=== PATIENT | male | born 1990 | race Caucasian/White ===

== ENCOUNTER 2020-06-26 23:32 | Emergency (ER) | payer SELFPAY ==
[~2020-06-26] VITALS: Ht 170.2 cm; Wt 71.4 kg
--- NOTE | 2020-06-26 23:45 | NUR ---
INITIAL PT CONTACT. PT PRESENTS TO THE ED WITH LEFT SHOULDER, SCAPULA, CHEST WALL AND HIP PAIN FOLLOWING A SKATEBOARDING FALL. PT STATES HE WAS JUMPING HIS SKATEBOARD APPROX 1.5 FLIGHTS OF STAIRS, PT LANDED WITH HIS ARM BEHIND HIM WITH DIRECT FORCE ON THE LEFT SIDE. PT STATES HE HAS NO SENSATION DISTAL TO THE INJURY, UNABLE TO MOVE ARM OR HAND OF THE LEFT SIDE, DISTAL TO INJURY. PT UPRIGHT ON GURNEY. ERP AT BEDSIDE.
[2020-06-26] MEDS ORDERED: ONDANSETRON 2MG/ML, 2ML ONE (23:46)
[2020-06-26] MEDS ORDERED: MORPHINE SULFATE 4 MG/ML, 1ML ONE (23:46)
[2020-06-26] MEDS ORDERED: HYDROmorphone 2 MG/ML, 1ML ONE (23:50)
[2020-06-27] MEDS ORDERED: MORPHINE SULFATE 4 MG/ML, 1ML IVPush PRN
[2020-06-27] MEDS ORDERED: ONDANSETRON 2MG/ML, 2ML IVPush ONE
[2020-06-27] MEDS ORDERED: SODIUM CHLORIDE FLUSH 10ML SYR IVF ONE
[2020-06-27] MEDS ORDERED: HYDROmorphone 1 MG/ML, 1ML INJ IM STA (00:10)
[2020-06-27] MEDS ORDERED: MORPHINE SULFATE 4 MG/ML, 1ML ONE (00:15)
[2020-06-27] MEDS ORDERED: HYDROmorphone 2 MG/ML, 1ML ONE (00:41)
[2020-06-27] MEDS ORDERED: HYDROmorphone 1 MG/ML, 1ML INJ IV ONE (01:00)
--- NOTE | 2020-06-27 01:22 | NUR ---
TASK RN: PT POSITIONED TO COMFORT AT THIS TIME AND PROVIDED BLANKETS DENIES FURTHER NEEDS AT THIS TIME.
--- NOTE | 2020-06-27 01:25 | NUR ---
PT TO CT AT THIS TIME
[2020-06-27 02:13] VITALS: BP 109/74
--- NOTE | 2020-06-27 02:15 | NUR ---
PIV PULLED OUT AND INFILTRATED WHILE PT IN CT.
--- NOTE | 2020-06-27 02:24 | NUR ---
PT REPORTS INCREASED PAIN REQUESTING ADDITIONAL PAIN MEDICATION. ERP NOTIFIED, WILL MEDICATE PER EMAR. STAFF AT BEDSIDE FOR NEW PIV PLACEMENT. PT DENIES ANY ADDITIONAL NEEDS AT THIS TIME.
[2020-06-27] MEDS ORDERED: HYDROmorphone 1 MG/ML, 1ML INJ ONE (02:36)
--- NOTE | 2020-06-27 02:38 | NUR ---
PT MEDICATED PER EMAR, REPORTS DECREASED PAIN. LAB AT BEDSIDE TO OBTAIN BLOOD SAMPLES, PT REFUSING LAB DRAWS AT THIS TIME.
[2020-06-27] MEDS ORDERED: HYDROmorphone 2 MG/ML, 1ML IVPush PRN (03:00)
--- NOTE | 2020-06-27 03:15 | NUR ---
LATE ENTRY FOR 2:52AM: PT TO CT, REFUSING CTA AT THIS TIME. STATING "I JUST WANT TO GO, I AM OVER THIS AND AT MY WHITS END. I CAN'T KEEP DOING THIS BACK AND FOURTH OF PEOPLE MOVING ME AND TRYING TO GET ALL THESE TESTS DONE". PT WALKED BACK TO ROOM WITH SSAS DEVELOPER AND BEGAN TO DRESS SELF TO LEAVE. UPON ENTRY INTO ROOM, PT UPSET AND REPEATEDLY STATING "I JUST NEED TO LEAVE, THIS IS OUT OF HAND, I NEED TO LEAVE". THIS RN ALONG WITH ERP, DR. CASTANEDA, DISCUSSED THE RISKS OF LEAVING THE HOSPITAL AGAINST MEDICAL ADVICE UP TO AND INCLUDING LOSS OF LIMB OR , PT VERBALIZED UNDERSTANDING OF RISKS "I KNOW I KNOW I COULD LOOSE MY ARM OR , I JUST NEED TO LEAVE". MULTIPLE ATTEMTPS TO REDIRECT PT AND SPEAK WITH PT REGARDING HIS FRUSTRATIONS. PT ENCOURAGED TO STAY MULTIPLE TIMES BY THIS RN ADN LEATHA CASTANEDA. PT REFUSING TO STAY AND OBTAIN FURTHER MEDICAL TREATMENT AT THIS TIME. ATTEMPTED TO HAVE PT SIGN AMA PAPERWORK, PT REFUSED AND WALKED PAST THIS RN OUT OF DOOR. PIV REMOVED PRIOR TO PT LEAVING AMA OUT OF HOSPITAL WITH STEADY GAIT. ALL BELONGINGS WITH PT.
== END 2020-06-27 00:35 | disposition left against medical advice (07) ==
LOC: ED 06-27 00:29
DX: S22.069A Unspecified fracture of T7-T8 vertebra, initial encounter for closed fracture (principal); S14.3XXA Injury of brachial plexus, initial encounter; M95.8 Other specified acquired deformities of musculoskeletal system; G89.11 Acute pain due to trauma; W10.8XXA Fall (on) (from) other stairs and steps, initial encounter; Y93.89 Activity, other specified; Y92.89 Other specified places as the place of occurrence of the external cause; Y99.8 Other external cause status
CPT/HCPCS: 71045; 72125; 72128; 73030; 96372; 96374; 96375; 96376; 99285; J1170; J2270; J2405; 99291

== ENCOUNTER 2020-06-27 05:12 | Emergency (ER) | payer OTHER ==
[~2020-06-27] VITALS: Ht 170.2 cm; Wt 70.0 kg
[2020-06-27] MEDS ORDERED: MORPHINE SULFATE 4 MG/ML, 1ML IVPush PRN (06:00)
[2020-06-27] MEDS ORDERED: SODIUM CHLORIDE FLUSH 10ML SYR IVF ONE (06:00)
[2020-06-27] MEDS ORDERED: SODIUM CHLORIDE 0.9% 1,000ML IVBOLUS ONE (06:00)
--- NOTE | 2020-06-27 06:07 | NUR ---
RADIOLOGY CALLED PER DR POOLE, IMAGES TO BE PUSHED OVER TO [facility] AT THIS TIME
[2020-06-27] MEDS ORDERED: HYDROmorphone 1 MG/ML, 1ML INJ ONE (06:37)
[2020-06-27] MEDS ORDERED: ONDANSETRON 2MG/ML, 2ML ONE (06:37)
[2020-06-27] MEDS ORDERED: ONDANSETRON 2MG/ML, 2ML IVPush ONE (07:00)
[2020-06-27] MEDS ORDERED: HYDROmorphone 2 MG/ML, 1ML IVPush PRN (07:00)
[2020-06-27 07:04] VITALS: BP 111/65
[2020-06-27 07:04] LABS: ALANINE AMINOTRANSFERASE 53 U/L (12-78); ALBUMIN 4.2 g/dL (3.4-5.0); ANION GAP 3 mmol/L (5-15); CALCIUM 9.3 mg/dL (8.5-10.1); CHLORIDE 107 mmol/L (98-107); CREATININE 0.91 mg/dL (0.7-1.3)
[2020-06-27 07:07] LABS: ALKALINE PHOSPHATASE 105 U/L (45-117); BILIRUBIN,TOTAL 0.5 mg/dL (0.2-1.0); TOTAL PROTEIN 8.5 g/dL (6.4-8.2)
[2020-06-27 07:19] LABS: BASOPHILS % (AUTO) 0 % (0-1); EOSINOPHILS % (AUTO) 0 % (1-7); LYMPHOCYTES % (AUTO) 6 % (22-44); MEAN CORPUSCULAR HEMOGLOBIN 32.5 pg (27.5-34.5); MEAN CORPUSCULAR HGB CONC 33.5 g/dL (33.2-36.2); MEAN PLATELET VOLUME 7.7 fL (7.4-10.4); MONOCYTES % (AUTO) 8 % (2-9); NEUTROPHILS % (AUTO) 86 % (42-75); PLATELET COUNT 233 x10^3/uL (130-400); RED BLOOD COUNT 4.74 x10^6/uL (4.38-5.82); RED CELL DISTRIBUTION WIDTH 13.3 % (9.4-14.8)
[2020-06-27 07:25] LABS: MD NO
== END 2020-06-27 07:06 | disposition short-term general hospital (02) ==
LOC: ED 05:45
DX: S14.3XXA Injury of brachial plexus, initial encounter (principal); G56.92 Unspecified mononeuropathy of left upper limb; M95.8 Other specified acquired deformities of musculoskeletal system; W01.0XXA Fall on same level from slipping, tripping and stumbling without subsequent striking against object, initial encounter; Y93.89 Activity, other specified; Y92.830 Public park as the place of occurrence of the external cause; Y99.8 Other external cause status
CPT/HCPCS: 36415; 80053; 85025; 99283